=== PATIENT | female | born 1945 ===

== ENCOUNTER 2019-05-10 05:45 | Inpatient (IN) ==
--- NOTE | 2019-04-25 13:11 | PAT Medication Instructions ---
Medication Instructions Date of Service April 25, 2019 Home Medications Medication Instructions Recorded hydrocodone-acetaminophen [[place]] 1 tab PO Q4H PRN #15 tab 12/12/18 acetaminophen [Tylenol Extra Strength] 500 mg PO Q6H PRN cholecalciferol (vitamin D3) [Vitamin D3] 2,000 unit PO QAM zefbzzhn-cyg-wrok-FA-lutein [Centrum Silver Women] 1 tab PO QAM Nasacort 2 spray INTRANASAL QAM gabapentin 300 mg PO TID hydrocodone-acetaminophen [[place]] 1 tab PO Q4H PRN ibuprofen [Advil] 200 mg PO Q8H PRN magnesium 400 mg PO QAM tramadol 50 mg PO BID PRN ASK your surgeon for instructions ibuprofen [Advil] 200 mg PO Q8H PRN DO NOT take the morning of surgery cholecalciferol (vitamin D3) [Vitamin D3] 2,000 unit PO QAM eajdgexn-pie-niai-FA-lutein [Centrum Silver Women] 1 tab PO QAM magnesium 400 mg PO QAM Take morning of surgery With a small sip of water, OTHERWISE NOTHING TO EAT OR DRINK AFTER MIDNIGHT: acetaminophen [Tylenol Extra Strength] 500 mg PO Q6H PRN (if needed, may be taken up to four hours before surgery) Nasacort 2 spray INTRANASAL QAM gabapentin 300 mg PO TID hydrocodone-acetaminophen [[place]] 1 tab PO Q4H PRN (if needed, may be taken up to four hours before surgery) tramadol 50 mg PO BID PRN (if needed, may be taken up to four hours before surgery) Take evening before surgery acetaminophen [Tylenol Extra Strength] 500 mg PO Q6H PRN (if needed) gabapentin 300 mg PO TID hydrocodone-acetaminophen [[place]] 1 tab PO Q4H PRN (if needed) tramadol 50 mg PO BID PRN (if needed) Other Notes If you have any questions please call us at [phone] or [phone] or [phone] or [phone]
--- NOTE | 2019-04-26 09:50 | Anesthesiology Consultation ---
Date of Service April 26, 2019 Assessment & Plan (1) Encounter for pre-operative examination: Chart Review Chart Review: Acceptable Risk for Surgery and Patient seen in Pre Admission Testing Teaching & Discussion Instructed NPO after midnight before surgery, except medications with 15 cc of water. Medication instructions provided according to the [facility] guidelines. History Surgery Operation Date: 05/10/19 11:25 Proposed Procedures p L3-L4 Decompression and Fusion with Spinal Cord Monitoring - Jamal Rubi DO Height/Weight Height: 5 ft 4 in Weight: 92.8 kg Allergies Allergy/AdvReac Type Severity Reaction Status Date / Time Iodinated Contrast Media AdvReac Severe Hives Unverified 04/15/19 13:46 [Iodinated Contrast- Oral and IV Dye] Medications Home Medications Medication Instructions Recorded Confirmed Last Taken acetaminophen [Tylenol Extra 500 mg PO Q6H PRN 11/15/18 04/15/19 11/15/18 06:30 Strength] 1000 mg cholecalciferol (vitamin D3) 2,000 unit PO QAM 11/15/18 04/15/19 12/12/18 [Vitamin D3] 0800 jorbywqa-fqc-ijls-FA-lutein 1 tab PO QAM 11/15/18 04/15/19 12/12/18 [Centrum Silver Women] 0800 Nasacort 2 spray INTRANASAL QAM 12/12/18 04/15/19 12/12/18 0800 gabapentin 300 mg PO TID 12/12/18 04/15/19 12/12/18 ibuprofen [Advil] 200 mg PO Q8H PRN 04/15/19 04/15/19 Unknown magnesium 400 mg PO QAM 04/15/19 04/15/19 Unknown tramadol 50 mg PO BID PRN 04/15/19 04/15/19 Unknown Past Medical History Medical History (Updated 04/26/19 @ 15:07 by David Lazo) Cardiac murmur I/ on exam at [facility]. Per 2013 moderate TN and mild MR. Heart valve disease Per 2013 moderate TN and mild MR. History of uterine cancer s/p total hyster Obesity Osteoarthritis Spinal stenosis Exercise / Class Metabolic Activity II 4-5 Yardwork/Stairs/Walk up hill (Denies chest pain or SOB with 1 FOS) Past Family History Family History Other No family history of adverse response to anesthesia No significant family history Past Surgical History Surgical History History of arthroscopy of left knee History of colonoscopy History of esophagogastroduodenoscopy (EGD) History of removal of cyst Left breast History of tooth extraction History of total abdominal hysterectomy and bilateral salpingo-oophorectomy Past Anesthesia History No Hx of Anesthesia Complications and No Family Hx of Anesthesia Complications History of PONV No Hx of PONV and No Hx of Motion Sickness Social History Smoking Status: Former smoker Do You Dip or Chew Tobacco: No Smoking End Date: quit at age 26 Hx Alcohol Use: Yes Alcohol type: wine alcohol intake frequency: a few times a month Hx Substance Use: No substance use type: does not use Review of Systems Pt denies any recent chest pain, shortness of breath, palpitations, cough, fever or URI. Physical Exam Vital Signs BP: 169/90 (pt is admittedly anxious) recheck 148/88. P: 90bpm SPO2: 97% RA T: 98.2 F R: 16 ENMT Mouth: + dental restorations (lots of crowns); no chipped teeth and no loose teeth Thyromental Distance: > or= 3.5 Finger Breadths (3.5) Mallampati Class: III Neck normal visual inspection and + limited neck extension Respiratory normal respiratory effort Auscultation: lungs clear to auscultation bilaterally Cardiovascular Rate/Rhythm: regular rhythm and + tachycardic (borderline) Heart Sounds: + murmur (I/) Vessels: no carotid bruit Extremities: no edema Testing Laboratory Results 04/26/19 10:12 04/26/19 10:12 PT 10.5 Seconds (9.0-12.0) 04/26/19 10:12 INR 1.0 (0.9-1.1) 04/26/19 10:12 APTT 24.8 Seconds (21.0-31.0) 04/26/19 10:12 Urine Color Yellow 04/26/19 Unknown Urine Appearance Clear (Clear) 04/26/19 Unknown Urine pH 5.5 (4.5-7.5) 04/26/19 Unknown Ur Specific [place] 1.011 (1.000-1.030) 04/26/19 Unknown Urine Protein Negative (Negative) 04/26/19 Unknown Urine Glucose (UA) Negative (Negative) 04/26/19 Unknown Urine Ketones Negative (Negative) 04/26/19 Unknown Urine Nitrite Negative (Negative) 04/26/19 Unknown Ur Leukocyte Esterase 2+ (Negative) H 04/26/19 Unknown Urine WBC (Auto) 1-5 /hpf (0-5) 04/26/19 Unknown Urine RBC (Auto) 0-4 /hpf (0-4) 04/26/19 Unknown U Hyaline Cast (Auto) 1-5 /lpf (0-5) 04/26/19 Unknown U Epithel Cells (Auto) >30 /lpf (0-5) H 04/26/19 Unknown Urine Bacteria (Auto) Negative (Negative) 04/26/19 Unknown Blood Type B Positive 04/26/19 10:12 Antibody Screen NEGATIVE 04/26/19 10:12 Electrocardiogram Date: 04/26/19 Findings: + NSR @ (80bpm) Rightward axis. Chest X-Ray Date: 04/26/19 Findings: + NAD Echocardiogram Date: 04/07/13 EF: 60% Normal LV function. LV filling pattern consistent with diastolic dysfunction. Normal RV size with normal function. Normal left atrium and right atrium. Mild mitral regurgitation. Moderate pulmonic regurgitation.
--- NOTE | 2019-04-26 10:56 | XRay Report ---
XR chest Pre-admission PA/Lat CLINICAL HISTORY: 73 years-old Female presenting with preoperative assessment. TECHNIQUE: PA and lateral views of the chest were obtained. COMPARISON: None. FINDINGS: Cardiomediastinal silhouette normal. Lungs and pleural spaces clear. Degenerative changes of the thor acic spine. Upper abdomen normal. IMPRESSION: 1. No acute cardiopulmonary disease. ACT 112: Negative or not required by law. Electronically signed by: Miguel Ángel Carney M.D. 04/26/2019 10:55 AM
[2019-04-26 11:22] LABS: Basophils # (auto) 0.05 K/uL (0-0.2); Basophils % (auto) 0.8 %; Eosinophils # (auto) 0.08 K/uL (0-0.5); Eosinophils % (auto) 1.3 %; Hematocrit (blood only) 40.9 % (37-47); Hemoglobin 13.8 g/dL (12.0-16.0); Immature Granulocytes # (auto) 0.02 K/uL (0.00-0.02); Immature Granulocytes % (auto) 0.3 %; Lymphocytes # (auto) 1.91 K/uL (1.2-3.4); Lymphocytes % (auto) 31.6 %; Mean Corpuscular Hemoglobin 31.2 pg (25-34); Mean Corpuscular Hgb Conc 33.7 g/dL (32-36); Mean Corpuscular Volume 92.5 fL (80-100); Mean Platelet Volume 10.3 fL (7.4-10.4); Monocytes # (auto) 0.56 K/uL (0.11-0.59); Monocytes % (auto) 9.3 %; Neutrophils # (auto) 3.42 K/uL (1.4-6.5); Neutrophils % (auto) 56.7 %; Platelet Count 274 K/uL (130-400); RDW Coefficient of Variation 12.5 % (11.5-14.5); RDW Standard Deviation 42.4 fL (36.4-46.3); Red Blood Count 4.42 M/uL (4.2-5.4); White Blood Count 6.04 K/uL (4.8-10.8)
[2019-04-26 11:30] LABS: Appearance Urine Clear (Clear); Bacteria Urine Automated Negative (Negative); Bilirubin Urine Negative (Negative); Blood Urine Negative (Negative); Color Urine Yellow; Epithelial Cell Urine Auto >30 /lpf (0-5); Glucose Urine UA Negative (Negative); Ketones Urine Negative (Negative); Leukocyte Esterase Urine 2+ (Negative); Nitrite Urine Negative (Negative); Protein Urine Negative (Negative); RBC Urine Automated 0-4 /hpf (0-4); Specific Gravity Urine 1.011 (1.000-1.030); Urobilinogen Urine Negative (Negative); pH Urine 5.5 (4.5-7.5)
[2019-04-26 11:33] LABS: BUN Creatinine Ratio 20.8 (10-20); Calcium 9.7 mg/dl (8.5-10.1); Creatinine Clr Calc Pharmacy 66.8 ml/min; Est GFR (African American) 80.5; Est GFR (Non-African American) 69.4
[2019-04-26 11:37] LABS: Partial Thromboplastin Ratio 0.9; Partial Thromboplastin Time 24.8 Seconds (21.0-31.0); Prothrombin Time 10.5 Seconds (9.0-12.0)
--- NOTE | 2019-04-26 12:38 | Electrocardiogram Report ---
Test Reason : Blood Pressure : / mmHG Vent. Rate : 080 BPM Atrial Rate : 080 BPM P-R Int : 168 ms QRS Dur : 090 ms QT Int : 378 ms P-R-T Axes : 064 096 078 degrees QTc Int : 435 ms Normal sinus rhythm Rightward axis Borderline ECG No previous ECGs available Confirmed by Johnny Parmar ([id number]) on 04/26/2019 12:38:25 PM Referred By: Jamal Rubi Confirmed By:Johnny Parmar
[2019-05-10] MEDS ORDERED: CEFAZOLIN 2000MG 2,000 MG/15 ML SYR IV SCH (06:00)
[2019-05-10] MEDS ORDERED: ACETAMINOPHEN 500 MG TAB PO SCH (06:00)
[2019-05-10] MEDS ORDERED: GABAPENTIN 300 MG CAP PO SCH (06:00)
[2019-05-10] MEDS ORDERED: LR 15ML/HR IV SCH (06:00)
[2019-05-10] MEDS ORDERED: CeleBREX 200 MG CAP PO SCH (06:00)
[2019-05-10] MEDS ORDERED: MIDAZOLAM HCL 1 MG/ML 2ML VIAL ONE (06:58)
[2019-05-10] MEDS ORDERED: HYDROmorphone INJ 2 MG/ML SYR/VIAL ONE (06:58)
[2019-05-10] MEDS ORDERED: LARYING-O-JET KIT (LTA) ONE (06:58)
[2019-05-10] MEDS ORDERED: fentaNYL citrate 100 MCG/2 ML VIAL ONE (06:58)
[2019-05-10] MEDS ORDERED: PROPOFOL IV EMULSION 10 MG/ML 20 ML VIAL IV ONE (06:58)
[2019-05-10] MEDS ORDERED: NEOSTIGMINE METHYLSULFATE 1 MG/ML 10ML VIAL ONE (06:58)
[2019-05-10] MEDS ORDERED: GLYCOPYRROLATE 0.2 MG/ML VIAL ONE ×2 (06:58→09:20)
[2019-05-10] MEDS ORDERED: ONDANSETRON INJ 2 MG/ML 2 ML VIAL ONE ×2 (06:58→08:30)
[2019-05-10] MEDS ORDERED: ROCURONIUM BROMIDE 10 MG/ML 5 ML VIAL ONE (06:58)
[2019-05-10] MEDS ORDERED: DEXAMETHASONE SOD INJ 4 MG/ML VIAL ONE ×2 (06:58)
[2019-05-10] MEDS ORDERED: SODIUM CHLORIDE 0.9% INJ 10 ML VIAL ONE (06:58)
[2019-05-10] MEDS ORDERED: LIDOCAINE HCL 2% 2 ML VIAL/AMP(20MG/ML) INFIL ONE (06:58)
[2019-05-10] MEDS ORDERED: BACITRACIN INJ 50,000 UNIT VIAL ONE (07:24)
[2019-05-10] MEDS ORDERED: ePHEDrine sulfate 50 MG/ML AMP IV PRN (07:25)
[2019-05-10] MEDS ORDERED: ATROPINE SULFATE 0.1 MG/ML 10ML SYR IV PRN (07:25)
[2019-05-10] MEDS ORDERED: METOCLOPRAMIDE HCL INJ 5 MG/ML 2 ML VIAL IV PRN ×2 (07:25→12:24)
[2019-05-10] MEDS ORDERED: BUPIVACAINE/EPINEPHRINE 0.5% MPF 1:200,000 10 ML VIAL ONE (07:25)
[2019-05-10] MEDS ORDERED: PROMETHAZINE HCL 12.5 MG in SODIUM CHLORIDE 0.9% 50 ML IV PRN ×2 (07:25→12:24)
[2019-05-10] MEDS ORDERED: HYDROmorphone INJ 2 MG/ML SYR/VIAL IV PRN (07:25)
[2019-05-10] MEDS ORDERED: ONDANSETRON INJ 2 MG/ML 2 ML VIAL IV PRN ×2 (07:25→12:24)
--- NOTE | 2019-05-10 07:26 | History & Physical Bridge Note ---
Date of Service May 10, 2019 History & Physical Bridge Note I have examined the patient, reviewed the History & Physical and in the interval since the performance of the History & Physical I have noted the following changes of clinical significance: no changes noted
--- NOTE | 2019-05-10 07:28 | History & Physical Report ---
Date of Service May 10, 2019 Assessment & Plan (1) Neurogenic claudication due to lumbar spinal stenosis: L3-4, L4-5 decompression fusion Present on Admission?: Yes History of Present Illness Chief Complaint: Back and leg pain Primary Care Provider: Virginie Irving MD This is a 73-year-old female with chronic persistent back and leg pain after failing extensive course of nonoperative care she is here for surgical invention. Allergies Allergy/AdvReac Type Severity Reaction Status Date / Time Iodinated Contrast Media AdvReac Severe Hives Verified 05/10/19 06:24 [Iodinated Contrast- Oral and IV Dye] Home Medications Home Medications Medication Instructions Recorded Confirmed Type acetaminophen [Tylenol Extra 500 mg PO Q6H PRN 11/15/18 05/10/19 History Strength] cholecalciferol (vitamin D3) 2,000 unit PO QAM 11/15/18 05/10/19 History [Vitamin D3] pimvennr-iij-lsre-FA-lutein 1 tab PO QAM 11/15/18 05/10/19 History [Centrum Silver Women] Nasacort 2 spray INTRANASAL QAM 12/12/18 05/10/19 History gabapentin 300 mg PO TID 12/12/18 05/10/19 History ibuprofen [Advil] 200 mg PO Q8H PRN 04/15/19 05/10/19 History magnesium 400 mg PO QAM 04/15/19 05/10/19 History tramadol 50 mg PO BID PRN 04/15/19 05/10/19 History lidocaine 1 patch TOPICAL DAILY 05/10/19 05/10/19 History Past Med/Surg History Family History Other No family history of adverse response to anesthesia No significant family history Social History Preferred Language: Albanian Communication Ability: Effective Inside Horticultural Specialty Grower Required: No Beliefs That Will Affect Care: None Current Living Situation: Spouse Other Information That Helps Us Care for You: No Feels Safe at Home: Yes Safety Concerns: Feels Safe At This Time Smoking Status: Former smoker Do You Dip or Chew Tobacco: No ; Smoking End Date: quit at age 26 ; Second Hand Exposure: No ; Tobacco Cessation Education Requested by Patient: No Hx Alcohol Use: Yes Alcohol type: wine Hx Substance Use: No Physical Exam Physical Exam: Patient is alert and oriented neurologically intact. Results & Data Vital Signs (Past 12 Hours) Vital Signs Temp Pulse Resp BP Pulse Ox 05/10/19 06:27 36.6 C 73 20 148/87 H 99
[2019-05-10] MEDS ORDERED: ePHEDrine sulfate 50 MG/ML SYR ONE (08:13)
[2019-05-10] MEDS ORDERED: PHENYLEPHRINE 100MCG/ML 5ML SYR ONE (08:13)
[2019-05-10] MEDS ORDERED: ALBUMIN HUMAN 5% 12.5 GM/250 ML VIAL IV ONE (09:41)
[2019-05-10] MEDS ORDERED: FLOSEAL HEMOSTATIC MATRIX 10ML TOP ONE (09:54)
--- NOTE | 2019-05-10 09:59 | Operative Report ---
Post Operative Report Pre & Post Diagnosis Operation Date: 05/10/19 07:45 Pre-Op Diagnosis: Neurogenic claudication due to lumbar spinal stenosis Post-Op Diagnosis: Neurogenic claudication due to lumbar spinal stenosis I identified the patient and participated in the time-out.: Yes Procedure Operation Date: 05/10/19 07:45 Actual Procedures #1 lumbar decompression bilateral medial facetectomies foraminotomies L2-3, L3- 4, L4-5. #2 posterior spinal fusion L3-4, L4-5. #3 placed posterior instrumentation L3-4 L4-5 per #4 interbody fusion L3-4 and L4-5. #5 placed a peek cage 10 x 22 mm at L3-4 and 12 x 22 mm at L4-5 per #6 placement locally harvested morselized autograft in the posterior lateral gutters. #7 placement infuse collagen sponge, master graft in the posterior lateral gutters ostial amp interbody space. Surgeon Jamal Rubi, DO Funeral Driver Zenobia Lam Estimated Blood Loss 400 Findings See Below Patient is 5 foot 4 inches tall weighing over 92 kg with a BMI in excess of 34. Patient's body habitus did add significant technical difficulty increasing his surgical time by at least 25%. She did require her deepest retractors and longest instruments in order to perform the procedure. Specimens None Indications This is a 73-year-old female presents with above-mentioned diagnosis after failing stents course of 9 care is here for surgical invention. Description of Procedure Patient was met with identified informed consent obtained. Patient was then taken to the operative suite underwent an patient placed in a prone position the Tayo table on top of the Ronny frame. All bony prominences well-padded eyes inspected to ensure no external pressure placed upon. This point the lumbar spine was prepped and draped in normal sterile fashion. Sharp dissection with the assistance of Bovie cautery was performed down to and exposing the lamina transverse processes of L3-L4-L5 bilaterally. From a caudal cephalad fashion complete laminectomy of L4 L3 and partial laminectomy of L2 was performed including bilateral medial facetectomies and foraminotomies addressing severe spinal stenosis. Pedicle screws were then placed in L3-L4-L5 bilaterally with assistance of fluoroscopy the proper sized елена placed. By way of a trans- foramen approach on the left complete discectomy of L4-5 was performed endplates curetted to subcortical bone and the 12 x 22 mm peek cage filled with osteo-bone graft tapped in position. Then proceeded to L3-[address] of a trans- foramen approach on the left complete discectomy was performed endplates curetted to subcortical bleeding bone and a 11 x 22 mm peek cage filled with osteo-bone graft tapped in position. Rods were then locked in final position bilaterally. The transverse processes of L3-L4-L5 bur to subcortical bleeding bone. Infuse collagen sponge mass graft local autograft was placed in the posterior gutters. 15 round MADISON drain inserted. Incision was then closed with 1 Vicryl the fascia 2-0 Vicryl subcutaneously and 4 Monocryl for final skin closure. Steri-Strip sterile dressings placed. Patient will continue PACU stable addition. Please note spinal cord monitoring was utilized that procedure no changes noted. Lastly Zenobia Lam was present at the entire procedure involved the patient positioning complex portions of the surgery and final skin closure. I attest to the content of the Intraoperative Record and any orders documented t herein. Any exceptions are noted below.
[2019-05-10] MEDS: fentaNYL citrate 100 MCG/2 ML VIAL IV PRN ×4 (10:33→10:57)
--- NOTE | 2019-05-10 11:04 | Fluoroscopy Report ---
FL lumbar spine 2-3V CLINICAL HISTORY: L3-L4 DECOMP/FUSION COMPARISON STUDY: None FLUOROSCOPY TIME: 20 seconds NUMBER OF FLUOROSCOPIC IMAGES: 2 FINDINGS: Findings consistent with an L3-L5 laminectomy and fusion. Disc spaces are present. IMPRESSION: Image intensifier support for an L3-L5 laminectomy and fusion. ACT 112: Negative or not required by law. The above report was generated using voice recognition software. It may contain grammatical, syntax or spelling errors. Electronically signed by: Phil Bellamy M.D. 05/10/2019 11:02 AM
--- NOTE | 2019-05-10 11:50 | Anesthesiology Progress Note ---
Date of Service May 10, 2019 Anesthesia Post Procedure Vital Signs Vital Signs: Temp Pulse Pulse Resp BP Pulse Ox 05/10/19 11:45 36.6 C 96 H 18 120/75 94 05/10/19 11:30 92 H 13 136/76 95 05/10/19 11:20 89 14 133/87 94 05/10/19 11:10 36.6 C 95 H 16 122/69 97 05/10/19 11:00 96 H 12 143/63 H 94 05/10/19 10:50 98 H 21 121/74 97 05/10/19 10:40 100 H 19 161/83 H 99 05/10/19 10:30 102 H 18 157/75 H 99 05/10/19 10:20 101 H 21 161/83 H 98 05/10/19 10:14 36.6 C 103 H 12 182/91 H 97 05/10/19 06:27 36.6 C 73 20 148/87 H 99 Pain Intensity Lower Back: Pain Intensity: 4 Transfer of Care Handoff Completed per policy Notes Mental Status: alert / awake / arousable and participated in evaluation Patient Amnestic to Procedure: Yes Nausea / Vomiting: adequately controlled Pain: adequately controlled Airway Patency, RR, SpO2: stable & adequate BP & HR: stable & adequate Hydration State: stable & adequate Anesthetic Complications: no major complications apparent
[2019-05-10] MEDS ORDERED: HYDROmorphone INJ 1 MG/ML SYRINGE IV PRN (12:24)
[2019-05-10] MEDS ORDERED: ONDANSETRON 4 MG OD TAB PO PRN (12:24)
[2019-05-10] MEDS ORDERED: DO NOT ADMINISTER PNEUMOCOCCAL VACCINE PRN (12:24)
[2019-05-10] MEDS ORDERED: NALOXONE HCL 0.4 MG/1 ML VIAL/CARP IV PRN (12:24)
[2019-05-10] MEDS ORDERED: LORazepam 0.5 MG TAB PO PRN (12:24)
[2019-05-10] MEDS ORDERED: LORazepam 0.5 MG/1 ML VIAL IV PRN (12:24)
[2019-05-10] MEDS ORDERED: bisacodyL 10 MG SUPP PR PRN (12:24)
[2019-05-10] MEDS ORDERED: ACETAMINOPHEN 500 MG TAB PO PRN (12:24)
[2019-05-10] MEDS ORDERED: ALUMINUM/MAGNESIUM SUSP 30 ML UDC PO PRN (12:24)
[2019-05-10] MEDS ORDERED: HYDROmorphone INJ 0.5 MG/0.5 ML SYR IV PRN (12:24)
[2019-05-10] MEDS ORDERED: MAGNESIUM HYDROXIDE SUSP 30 ML UDC PO PRN (12:24)
[2019-05-10] MEDS ORDERED: FAMOTIDINE 20 MG TAB PO PRN (12:24)
[2019-05-10] MEDS ORDERED: ACETAMINOPHEN 1,000 MG/100 ML VIAL IV PRN (12:24)
[2019-05-10] MEDS ORDERED: SOD PHOSPHATE/SOD BIPHOSPHATE ENEMA 132 ML BTL PR PRN (12:24)
[2019-05-10] MEDS ORDERED: DO NOT ADMINISTER FLU VACCINE PRN (12:24)
--- NOTE | 2019-05-10 13:18 | Consultation ---
Date of Consultation May 10, 2019 Assessment & Plan (1) Status post lumbar surgery: Post op day# 0 S/P L3-L5 decompression and fusion by Dr Rubi EBL#400ml Mild tachycardia rate 100. Regular rhythm. Monitor and continue IVF Pain management per ortho Wound management per ortho PT/OT as appropriate DVT prophylaxis per ortho Incentive spirometry Monitor H&H for acute blood loss anemia; Pre-op Hgb: 13.8 (2) Obesity: BMI: 34. Lifestyle modifications recommended DVT Prophylaxis -SCDs per ortho Disposition per primary service Follows with Dr Virginie Irving in [place] for routine care Pt was seen and care coordinated with Dr Morrison. See addendum Thank you for this consultation. We will follow the patient with you during their hospital stay. You can reach a member of the [place] Hospitalist Team 13/10 via pager @ [phone]. Supervising Physician Co-Signing Physician Notes Attending addendum Patient was seen and examined in medical floor He is a status post L3-L4, L4-L5 decompression and fusion on 05/10/19 Denies any significant symptoms except some discomfort at the back On examination Lying in bed comfortably Hemodynamically stable with heart rate of around 111 Chest-clear to auscultate bilaterally Heart-S1-S2 regular Abdomen-benign Extremities-no edema His admission labs and imaging studies reviewed Status post L3-L5 lumbar decompression and fusion Remains medically stable Agree with assessment and plan as outlined above by RM Buckner Dr History of Present Illness Requesting Physician: Dr Rubi Reason for Consultation: Post op medical management Attending Physician: Jamal Rubi DO History of Present Illness Pt is 73 y/o F with PMH obesity, mild mitral regurgitation, uterine CA s/p hysterectomy seen in medical consultation s/p L 3- L5 decompression and fusion today by Dr Rubi for post op medical management. Post op pt reports feeling well. Pain controlled. Denies LE paresthesias, nausea, vomiting, SOB, CP, dizziness or palpitations. Denies WYMAN, vision changes, neck pain, cough, sore throat, choking, abdominal pain, extremity edema, rashes, urinary symptoms. Allergies Allergy/AdvReac Type Severity Reaction Status Date / Time Iodinated Contrast Media AdvReac Severe Hives Verified 05/10/19 06:24 [Iodinated Contrast- Oral and IV Dye] Home Medications Home Medications Medication Instructions Recorded Confirmed Type acetaminophen [Tylenol Extra 500 mg PO Q6H PRN 11/15/18 05/10/19 History Strength] cholecalciferol (vitamin D3) 2,000 unit PO QAM 11/15/18 05/10/19 History [Vitamin D3] artdwzod-oqu-ywrh-FA-lutein 1 tab PO QAM 11/15/18 05/10/19 History [Centrum Silver Women] Nasacort 2 spray INTRANASAL QAM 12/12/18 05/10/19 History gabapentin 300 mg PO TID 12/12/18 05/10/19 History ibuprofen [Advil] 200 mg PO Q8H PRN 04/15/19 05/10/19 History magnesium 400 mg PO QAM 04/15/19 05/10/19 History tramadol 50 mg PO BID PRN 04/15/19 05/10/19 History lidocaine 1 patch TOPICAL DAILY 05/10/19 05/10/19 History Patient History Medical History Cardiac murmur I/ on exam at [facility]. Per 2013 moderate [place] and mild MR. Heart valve disease Per 2013 moderate [place] and mild MR. History of uterine cancer s/p total hyster Obesity Osteoarthritis Spinal stenosis Surgical History History of arthroscopy of left knee History of colonoscopy History of esophagogastroduodenoscopy (EGD) History of removal of cyst Left breast History of tooth extraction History of total abdominal hysterectomy and bilateral salpingo-oophorectomy Family History (Updated 05/10/19 @ 13:18 by Erica Delaney PA-C) Sister Breast cancer Father Stroke Other No family history of adverse response to anesthesia Social History (Updated 05/10/19 @ 13:19 by Erica Delaney PA-C) Preferred Language: Lebanese Communication Ability: Effective Shop Director Required: No Beliefs That Will Affect Care: None Current Living Situation: Spouse Other Information That Helps Us Care for You: No Feels Safe at Home: Yes Safety Concerns: Feels Safe At This Time Smoking Status: Former smoker Do You Dip or Chew Tobacco: No ; Smoking End Date: quit at age 26 ; Second Hand Exposure: No ; Tobacco Cessation Education Requested by Patient: No Hx Alcohol Use: Yes (2 glasses once a week) Alcohol type: wine Hx Substance Use: No Review of Systems Review of Systems: All systems reviewed & are unremarkable except as noted in HPI & below Physical Exam Physical Exam: General: no distress, obese Head: normocephalic, atraumatic Eyes: PERRL, EOM's intact, conjunctiva non-injected, anicteric ENT: normal inspection external ears, nose, mucous membranes moist Neck: supple, trachea midline Lungs: clear, no respiratory distress, no wheezing/rhonchi/rales CV: RRR, rate 98, +systolic murmur, no JVD, no pretibial edema Abd: normal BS, soft, non-tender Back: surgical dressing in place Ext: no cyanosis, no calf tenderness; pedal pushes and pulls intact bilaterally, sensation to light touch intact, distal pulses intact bilaterally Neuro: A&O x 3, no focal deficits noted, normal affect Skin: warm, dry Results & Data ([facility]) Vital Signs (Past 12 Hours) Vital Signs Temp Pulse Pulse Pulse Resp BP Pulse Ox 05/10/19 12:35 36.4 C L 100 H 16 125/73 93 05/10/19 12:05 36.7 C 104 H 16 93 05/10/19 11:45 36.6 C 96 H 18 120/75 94 05/10/19 11:30 92 H 13 136/76 95 05/10/19 11:20 89 14 133/87 94 05/10/19 11:10 36.6 C 95 H 16 122/69 97 05/10/19 11:00 96 H 12 143/63 H 94 05/10/19 10:50 98 H 21 121/74 97 05/10/19 10:40 100 H 19 161/83 H 99 05/10/19 10:30 102 H 18 157/75 H 99 05/10/19 10:20 101 H 21 161/83 H 98 05/10/19 10:14 36.6 C 103 H 12 182/91 H 97 05/10/19 06:27 36.6 C 73 20 148/87 H 99
[2019-05-10] MEDS: SODIUM CHLORIDE 0.9% 1000ML 1,000 ML IV SCH (13:45)
[2019-05-10] MEDS: GABAPENTIN 300 MG CAP PO SCH ×2 (13:45→20:03)
[2019-05-10] MEDS: CEFAZOLIN 2000MG 2,000 MG/15 ML SYR IV SCH (16:15)
[2019-05-10] MEDS: OXYCODONE HCL IR 5 MG TAB (IMMEDIATE RELEASE) PO PRN (17:29)
[2019-05-10] MEDS: DOCUSATE SODIUM/SENNA 50/8.6MG TAB PO SCH (20:03)
[2019-05-11] MEDS: SODIUM CHLORIDE 0.9% 1000ML 1,000 ML IV SCH (00:14)
[2019-05-11] MEDS: CEFAZOLIN 2000MG 2,000 MG/15 ML SYR IV SCH (00:15)
[2019-05-11] MEDS: POLYETHYLENE (MIRALAX) 17 GM PACK PO SCH ×3 (05:31→18:46)
[2019-05-11 05:51] LABS: Basophils # (auto) 0.03 K/uL (0-0.2); Basophils % (auto) 0.3 %; Eosinophils # (auto) 0.09 K/uL (0-0.5); Eosinophils % (auto) 0.9 %; Hematocrit (blood only) 32.2 % (37-47); Hemoglobin 10.7 g/dL (12.0-16.0); Immature Granulocytes # (auto) 0.02 K/uL (0.00-0.02); Immature Granulocytes % (auto) 0.2 %; Lymphocytes # (auto) 1.49 K/uL (1.2-3.4); Lymphocytes % (auto) 14.3 %; Mean Corpuscular Hemoglobin 31.1 pg (25-34); Mean Corpuscular Hgb Conc 33.2 g/dL (32-36); Mean Corpuscular Volume 93.6 fL (80-100); Mean Platelet Volume 9.8 fL (7.4-10.4); Monocytes # (auto) 1.01 K/uL (0.11-0.59); Monocytes % (auto) 9.7 %; Neutrophils # (auto) 7.79 K/uL (1.4-6.5); Neutrophils % (auto) 74.6 %; Platelet Count 232 K/uL (130-400); RDW Coefficient of Variation 12.9 % (11.5-14.5); RDW Standard Deviation 43.8 fL (36.4-46.3); Red Blood Count 3.44 M/uL (4.2-5.4); White Blood Count 10.43 K/uL (4.8-10.8)
[2019-05-11 06:18] LABS: BUN Creatinine Ratio 18.7 (10-20); Calcium 8.7 mg/dl (8.5-10.1); Creatinine Clr Calc Pharmacy 72.7 ml/min; Est GFR (African American) 89.4; Est GFR (Non-African American) 77.1; Magnesium 2.2 mg/dl (1.8-2.4); Potassium 4.3 mmol/L (3.5-5.1)
[2019-05-11] MEDS: MAGNESIUM OXIDE 400 MG TAB PO SCH (08:37)
[2019-05-11] MEDS: GABAPENTIN 300 MG CAP PO SCH ×3 (08:39→20:17)
[2019-05-11] MEDS: TRIAMCINOLONE ACET NASAL SPRAY 10.8ML BTL SCH (08:39)
[2019-05-11] MEDS: OXYCODONE HCL IR 5 MG TAB (IMMEDIATE RELEASE) PO PRN ×2 (10:34→16:15)
--- NOTE | 2019-05-11 11:13 | Orthopedic Progress Note ---
Date of Service May 11, 2019 Assessment & Plan (1) Neurogenic claudication due to lumbar spinal stenosis: This time we will continue physical therapy monitor her MADISON output hopefully discharge home in the next few days. Present on Admission?: Yes Admission and Anticipated Discharge Date Admission Date: May 10, 2019 Subjective Back pain controlled leg pain improved. Physical Exam Physical Exam: Patient is seen in the chair at the bedside assessing strength testing. Appears comfortable. Results & Data ([facility]) Vital Signs (Past 12 Hours) Vital Signs Temp Pulse Pulse Resp BP Pulse Ox 05/11/19 07:52 36.6 C 89 18 120/70 95 05/11/19 03:03 36.6 C 96 H 16 118/71 94 05/10/19 23:24 36.6 C 93 H 16 112/67 95
--- NOTE | 2019-05-11 12:14 | Hospitalist Progress Note ---
Date of Service May 11, 2019 Assessment & Plan (1) Status post lumbar surgery: Post op day#1 S/P L3-L5 decompression and fusion by Dr Elicia JUAREZ#400ml Hb today is 10.7 (was 13.8 on 04/26/19) Monitor H/H Pain management per ortho Wound management per ortho Continue PT/OT DVT prophylaxis per ortho Incentive spirometry Continue miralax for now (2) Obesity: BMI: 34. Lifestyle modifications recommended n. Will follow the patient with you during their hospital stay. You can reach a member of the [facility] Hospitalist Team 13/10 via pager @ [phone]. Admission and Anticipated Discharge Date Admission Date: May 10, 2019 Subjective Reports pain at surgical site is well controlled Has not had bowel movement but has been passing flatus Denied any nausea or vomiting or abdominal pain Denied any fevers, chills Denied any cough, chest pain or shortness of breath Physical Exam Constitutional: well nourished, + well hydrated and + obese; no acute distress Respiratory: normal respiratory effort, lungs clear to auscultation Cardiovascular: Rate/Rhythm: regular rate and regular rhythm Heart Sounds: normal S1 and normal S2 Extremities: no pedal edema Gastrointestinal (Abdomen): normal bowel sounds, soft, nontender, no hepatosplenomegaly Musculoskeletal: Clean dressing over lower back with MADISON drain in-situ draining serosanguinous fluid Neurologic: PERRL, EOMI, accommodation nl, no face palsy, no dysarthria Psychiatric: A+Ox3, euthymic affect Results & Data ([facility]) Vital Signs (Past 12 Hours) Vital Signs Temp Pulse Pulse Resp BP Pulse Ox 05/11/19 07:52 36.6 C 89 18 120/70 95 05/11/19 03:03 36.6 C 96 H 16 118/71 94 Laboratory Results Abnormal lab results 05/11/19 05/11/19 Range/Units 05:38 05:38 RBC 3.44 L (4.2-5.4) M/uL Hgb 10.7 L (12.0-16.0) g/dL Hct 32.2 L (37-47) % Neut # (Auto) 7.79 H (1.4-6.5) K/uL Bullock # (Auto) 1.01 H (0.11-0.59) K/uL Chloride 109 H (98-107) mmol/L Glucose 117 H (70-99) mg/dl
[2019-05-11] MEDS: TRAMADOL HCL 50 MG TABLET PO PRN ×2 (17:03→21:56)
[2019-05-11] MEDS: DOCUSATE SODIUM/SENNA 50/8.6MG TAB PO SCH (20:16)
[2019-05-12 08:06] LABS: Hematocrit (blood only) 34.3 % (37-47)
--- NOTE | 2019-05-12 08:17 | Orthopedic Progress Note ---
Date of Service May 12, 2019 Assessment & Plan (1) Neurogenic claudication due to lumbar spinal stenosis: Patient Continue physical therapy monitor MADISON output. Possible discharge tomorrow. Present on Admission?: Yes Admission and Anticipated Discharge Date Admission Date: May 10, 2019 Subjective Back pain controlled leg symptoms markedly improved. Physical Exam Physical Exam: Patient is good strength testing. She is sitting in a chair at bedside. Comfortable. Results & Data ([facility]) Vital Signs (Past 12 Hours) Vital Signs Temp Pulse Resp BP Pulse Ox 05/12/19 06:12 36.8 C 86 16 125/77 93 05/11/19 23:52 37.2 C 93 H 16 104/69 93
[2019-05-12] MEDS: TRIAMCINOLONE ACET NASAL SPRAY 10.8ML BTL SCH (09:32)
[2019-05-12] MEDS: MAGNESIUM OXIDE 400 MG TAB PO SCH (09:32)
[2019-05-12] MEDS: GABAPENTIN 300 MG CAP PO SCH ×3 (09:32→20:15)
[2019-05-12] MEDS: TRAMADOL HCL 50 MG TABLET PO PRN ×3 (09:43→20:15)
--- NOTE | 2019-05-12 17:15 | Hospitalist Progress Note ---
Date of Service May 12, 2019 Assessment & Plan (1) Status post lumbar surgery: Post op acute blood loss anemia Expected Post op day#2 S/P L3-L5 decompression and fusion by Dr Elicia JUAREZ#400ml Hb yesterday is 10.7 (was 13.8 on 04/26/19), stable today at 11 Asymptomatic Pain management per ortho Wound management per ortho Continue PT/OT DVT prophylaxis per ortho (2) Obesity: BMI: 34. Lifestyle modifications recommended Will follow the patient with you during their hospital stay. You [facility] via pager @ [phone]. Admission and Anticipated Discharge Date Admission Date: May 10, 2019 Subjective Jacobsen seen and examined. Reported back pain is controlled. Has no other complaints Has been ambulating and walking with PT Physical Exam Constitutional: + well hydrated and + obese; no acute distress Eyes: PERRL, conjunctivae normal, anicteric sclerae Respiratory: normal respiratory effort, lungs clear to auscultation Cardiovascular: RRR, no murmur, no edema Gastrointestinal (Abdomen): normal bowel sounds, soft, nontender, no hepat osplenomegaly Musculoskeletal: Clean dressing over lower back with MADISON drain in situ Neurologic: PERRL, EOMI, accommodation nl, no face palsy, no dysarthria Psychiatric: A+Ox3, euthymic affect Results & Data ([facility]) Vital Signs (Past 12 Hours) Vital Signs Temp Pulse Resp BP Pulse Ox 05/12/19 15:41 36.8 C 87 16 125/75 92 05/12/19 15:07 36.8 C 87 16 125/76 93 05/12/19 06:12 36.8 C 86 16 125/77 93 Laboratory Results Abnormal lab results 05/12/19 Range/Units 07:51 Hgb 11.0 L (12.0-16.0) g/dL Hct 34.3 L (37-47) %
[2019-05-12] MEDS: DOCUSATE SODIUM/SENNA 50/8.6MG TAB PO SCH (20:16)
[2019-05-13] MEDS: TRAMADOL HCL 50 MG TABLET PO PRN ×2 (04:15→10:58)
[2019-05-13] MEDS: TRIAMCINOLONE ACET NASAL SPRAY 10.8ML BTL SCH (09:12)
[2019-05-13] MEDS: GABAPENTIN 300 MG CAP PO SCH (09:12)
[2019-05-13] MEDS: MAGNESIUM OXIDE 400 MG TAB PO SCH (09:12)
--- NOTE | 2019-05-13 09:22 | Discharge Summary ---
Date of Service May 13, 2019 Admission HPI Per Admitting Provider This is a 73-year-old female with chronic persistent back and leg pain after failing extensive course of nonoperative care she is here for surgical invention. Principal Diagnosis Lumbar spinal stenosis with neurogenic claudication Discharge Data Allergies Allergy/AdvReac Type Severity Reaction Status Date / Time Iodinated Contrast Media AdvReac Severe Hives Verified 05/10/19 06:24 [Iodinated Contrast- Oral and IV Dye] Consultations 05/10/19 12:24 Consult Case Management - Discharge Planning Routine Consult Hospitalist Routine Procedures Performed Operation Date: 05/10/19 07:45 Actual Procedures p L3-L4, L4-L5 Decompression and Fusion with Spinal Cord Monitoring(Not Applicable) - Jamal Rubi DO Ordered Studies 05/10/19 07:45 FL fluoroscopy <1hr Routine FL lumbar spine 2-3V Routine Hospital Course (1) Neurogenic claudication due to lumbar spinal stenosis: Patient with lumbar decompression fusion tolerated so was taken to orthopedic for postoperative. Postop day 1 she was up and ambulating progressed appropriately through postop day #2 on postop day #3 she was ambulating without difficulty excellent strength testing. MADISON drain decreasing probably. Subsequent discharge home. Discharge orders and instructions from the chart for further review. Total Time Total Time Spent Total Time Spent (In Minutes): 20 minutes Discharge Plan Discharge Items Patient Disposition: Home - Self-Care Reason For Visit: LUMBAR SPINAL STENOSIS W NEUROGENIC CLAUDICATION Discharge Diagnosis: Lumbar spinal stenosis with neurogenic claudication Activity: As commented below Non-emergency contact: Primary Care Provider Call non-emergency contact if: you have any medication questions Follow-up/Referrals: Virginie Irving MD [Primary Care Provider] - Diet: Regular Addtl Attending Provider Instructions: ACTIVITY RECOMMENDATIONS: SELF CARE INSTRUCTIONS AFTER THORACIC/LUMBAR FUSIONS 1. You may walk to your tolerance. It is good exercise for your legs and back. Expect some back and intermittent leg aches and pains. 2. You may perform "counter-top" level activities (make a sandwich, ambrosio with a project, etc.). 3. No bending or lifting of more than 10 pounds or back twisting of any nature (roll like a log when turning in bed). 4. You may ride in a car for 20-30 minutes at a time. No driving until after your first visit with your doctor. 5. Frequent changes of position and restricting sitting to 30 minutes at a time will help limit the amount of back spasms and stiffness you may experience. 6. You may discontinue the use of ambulatory aids (cane, crutches, etc.) once your strength and confidence allow. 7. You may clinical specialist medical device the shower and let water strike your incision when you arrive home at least once daily. Do not take a tub bath, sit in a hot tub or go into a swimming pool until after your first recheck in the office. SPECIAL CARE INSTRUCTIONS: VERY IMPORTANT TO READ AND REVIEW A. Your surgical incision has been closed with a cosmetic suture under the skin that will dissolve in about 6 weeks. In 14 days, you can use a pair of clean scissors and cut the suture that is left outside of the skin at the ends of your incision. 1. The small skin tapes can be removed 7 days after surgery if they have not fallen off by that point. 2. You may keep the wound open to air as much as possible to promote healing after post-op day number 5 unless told otherwise by your doctor. 3. If you think the wound looks like it is becoming infected (redness or worsening drainage) and/or you are experiencing fever, chill or worsening back pain and muscle spasms, contact the office so that we may evaluate you as soon as possible. B. Complications are uncommon, but please contact us if you have any signs or symptoms of: 1. wound infection (fever higher than 102.5 degrees F, redness, separation of wound, drainage, or increasing pain from the incision) 2. blood clots in legs (pain, swelling, redness and warmth in legs) 3. urinary tract infection (fever higher than 102.5 degrees F, burning upon urination or increased frequency of urination) 4. nerve problems (inability to walk on your toes or heels, numbness, loss of bowel or bladder control) 5. any other symptoms that concern you C. Please call the office at if you have any concerns or questions about your operation or recovery. D. No smoking! Smoking drastically decreases the chance of a solid fusion. E. Do not take any anti-inflammatory medications (Indocin, Advil, Motrin, Aspirin, Naprosyn, etc.) as these may inhibit the chance of a solid fusion. Tylenol is okay to take for pain. MANAGING PAIN AFTER SPINAL SURGERY 1. Narcotic medication is intended for short-term use and will be provided for surgical pain. Surgical pain usually lasts for a period of 4-6 weeks. Narcotic medication includes Percocet, Vicodin, Darvocet, Tylenol #3 or Lortab. 2. Longer-term pain is more appropriately treated with non-narcotic medication such as Tylenol ES. 3. Muscle spasm is not appropriately treated with narcotics. Muscle relaxers such as Soma, Flexeril or Skelaxin can be used along with Tylenol ES. 4. Remember that we all live with some "aches and pains". This is not unusual or uncommon after an injury or as we get older. a. Back pain is expected and may include muscle spasms for 4 to 6 weeks after surgery. The pain should gradually improve. If the pain worsens for no apparent reason, please contact the office. b. Intermittent leg pain may also be experienced and should not be concerned about unless it worsens for no apparent reason. If so, please contact the office. 5. We will provide appropriate medication within the normal guidelines of their prescribed use. We will also be very cautious and aware of potential abuse and extended duration of patients' medication needs. a. Pain medications are for your comfort and to assist with sleep and rest so that the tissue can heal. They are not provided in order to return to normal activity and should not be used through the day. To do so or worsening pain at night can result from ongoing tissue damage and development of tolerance to the prescribed medicine. 6. Please allow 2-3 days to process refills. Prescriptions will not be mailed but must be picked up at the office. FOLLOW UP VISIT: Keep your scheduled follow-up appointment. Any questions, please call the office at . Pending Studies at Discharge: No Stand-Alone Forms: My [employer], Smoking Cessation Medications and DC Order Prescriptions: New tramadol 50 mg tablet 50 mg PO Q6H PRN (Reason: pain, moderate) Qty: 30 RF: 0 oxycodone 5 mg tablet 5 mg PO Q6H PRN (Reason: pain, severe) Qty: 30 RF: 0 Continued acetaminophen [Tylenol Extra Strength] 500 mg Tablet 500 mg PO Q6H PRN (Reason: Pain) RF: 0 cholecalciferol (vitamin D3) [Vitamin D3] 2,000 unit Tablet 2,000 unit PO QAM RF: 0 Centrum Silver Women 8 mg iron-400 mcg-300 mcg Tablet 1 tab PO QAM RF: 0 gabapentin 100 mg capsule 300 mg PO TID RF: 0 Nasacort bottle 2 spray intranasal QAM RF: 0 tramadol 50 mg Tablet 50 mg PO BID PRN (Reason: Pain) RF: 0 magnesium 200 mg Tablet 400 mg PO QAM RF: 0 lidocaine 1.8 % Adhesive Patch,Medicated 1 patch TOPICAL DAILY RF: 0 Discontinued ibuprofen [Advil] 200 mg Tablet 200 mg PO Q8H PRN (Reason: Pain) RF: 0 Discharge Orders: Discharge Order (Routine); Ordered 05/13/19 Ordered By: Jamal Rubi Admission Data Admit Date/Time: 05/10/19 10:46 Attending Provider: Jamal Rubi Admit Provider: Jamal Rubi Primary Care Provider: Virginie Irving Other Providers: Leslee Lange I.
== END 2019-05-13 11:17 | disposition home or self-care (01) | DRG 454 ==
LOC: ASU 05:45 → 3E 10:46